=== PATIENT | female | born 1930 | race Caucasian/White ===

== ENCOUNTER 2017-10-23 08:35 | Inpatient (IN) ==
[2017-10-23] MEDS ORDERED: FUROSEMIDE 100 MG/10 ML VIAL IV STA (09:30)
[2017-10-23] MEDS ORDERED: FUROSEMIDE 40 MG/4 ML VIAL ONE (09:43)
[2017-10-23 10:04] LABS: Basophils % 0.2 % (0.0-0.8); Eosinophils % 0.1 % (0.00-10.9); Hematocrit 37.3 VOL% (35.7-47.0); Hemoglobin 12.2 GM/DL (12.0-16.0); Immature Granulocytes % 0.6 %; Immature Granulocytes Absolute 0.05 #; Lymphocytes # 0.5 10*3/uL (1.4-4.0); Lymphocytes % 6.1 % (21.3-54.2); Mean Corpuscular HGB Conc 32.7 GM/DL (32-36); Mean Corpuscular Hemoglobin 31 PG (27-34); Mean Corpuscular Volume 94.4 FL (87-102); Monocytes # 0.9 10*3/uL (0.11-0.8); Monocytes % 10.4 % (1.7-12.7); NRBC # 0.02 10*3/uL; Neutrophils # 6.7 10*3/uL (1.4-7.4); Neutrophils % 82.6 % (38.7-73.9); Platelet Count 190 T/CUMM (130-400); Red Blood Count 3.95 MC/CUMM (3.8-5.5); Red Cell Distribution Width 13.5 % (9.3-17.3); White Blood Count 8.1 T/CUMM (4-12)
[2017-10-23 10:29] LABS: Albumin 2.9 G/DL (3.4-5.0); Bilirubin,Total 0.5 MG/DL (0.2-1.0); Calcium 8.4 MG/DL (8.5-10.1); Osmolality,Calculated 283.3 MOS/KG (273-304); Total Protein 6.4 G/DL (6.4-8.3)
[2017-10-23 10:30] LABS: Troponin I Only 0.265 NG/ML (0.00-0.045)
[2017-10-23 10:50] LABS: Apearance,Urine CLEAR (Clear); Bilirubin,Urine Negative (Negative); Blood, Urine Small mg/dL (Negative); Glucose,Urine (UA) Negative (Negative); Hyaline Casts,Urine 3 /LPF (0-3); Ketones,Urine Negative (Negative); Mucus,Urine Occasional /LPF (Occasional); Nitrite,Urine Negative (Negative); Protein,Urine Negative; RBC,Urine 3 /HPF (0-4); Squamous Epithelial Cell,Urine Occasional /HPF (0-10); Urine Color Straw (Yellow); Urine Specific Gravity 1.006 (1.001-1.035); Urine Urobilinogen < 2.0 EU/DL (0.2-1.0)
[2017-10-23] MEDS ORDERED: APIXABAN 5 MG TABLET PO STA (11:12)
[2017-10-23] MEDS ORDERED: BISACODYL 5 MG TABLET PO PRN (11:15)
[2017-10-23] MEDS ORDERED: ONDANSETRON 4 MG/2 ML VIAL IV PRN (11:15)
[2017-10-23] MEDS ORDERED: METOPROLOL TARTRATE 25 MG TABLET ONE (14:23)
[2017-10-23] MEDS ORDERED: LISINOPRIL 10 MG TABLET ONE (14:28)
[2017-10-23] MEDS: LISINOPRIL 20 MG TABLET PO SCH (14:30)
[2017-10-23] MEDS: METOPROLOL TARTRATE 25 MG TABLET PO SCH ×3 (14:30→21:06)
[2017-10-23] MEDS ORDERED: FUROSEMIDE 20 MG/2 ML VIAL IV ONE (15:00)
[2017-10-23] MEDS ORDERED: FUROSEMIDE 20 MG/2 ML VIAL ONE (15:40)
[2017-10-23] MEDS ORDERED: ENOXAPARIN 40 MG/0.4 ML SYRINGE SUBCUT SCH (21:00)
[2017-10-23] MEDS: POTASSIUM CHLORIDE 20 MEQ/15 ML UDCUP PO SCH (21:06)
[2017-10-23] MEDS: APIXABAN 5 MG TABLET PO SCH (21:06)
[2017-10-24] MEDS: traZODone 50 MG TABLET PO PRN (01:34)
[2017-10-24 06:07] LABS: Basophils % 0.3 % (0.0-0.8); Eosinophils # 0.1 10*3/uL (0.0-0.87); Eosinophils % 1.1 % (0.00-10.9); Hematocrit 34.8 VOL% (35.7-47.0); Hemoglobin 11.5 GM/DL (12.0-16.0); Immature Granulocytes % 0.3 %; Immature Granulocytes Absolute 0.02 #; Lymphocytes % 14.5 % (21.3-54.2); Mean Corpuscular Hemoglobin 31 PG (27-34); Mean Corpuscular Volume 94.3 FL (87-102); Mean Platelet Volume 11.6 FL (9.6-12.0); Monocytes # 0.9 10*3/uL (0.11-0.8); Monocytes % 13.1 % (1.7-12.7); Neutrophils % 70.7 % (38.7-73.9); Platelet Count 193 T/CUMM (130-400); Red Blood Count 3.69 MC/CUMM (3.8-5.5); Red Cell Distribution Width 13.7 % (9.3-17.3)
[2017-10-24 06:52] LABS: Calcium 8.7 MG/DL (8.5-10.1)
[2017-10-24] MEDS: METOPROLOL TARTRATE 25 MG TABLET PO SCH ×4 (10:15→20:47)
[2017-10-24] MEDS: ATORVASTATIN 40 MG TABLET PO SCH (10:15)
[2017-10-24] MEDS: LISINOPRIL 20 MG TABLET PO SCH (10:15)
[2017-10-24] MEDS: POTASSIUM CHLORIDE 20 MEQ/15 ML UDCUP PO SCH (10:15)
[2017-10-24] MEDS: APIXABAN 5 MG TABLET PO SCH ×2 (10:15→20:46)
[2017-10-24] MEDS: FUROSEMIDE 40 MG TABLET PO SCH (10:16)
[2017-10-24] MEDS: METOPROLOL TARTRATE 50 MG TABLET PO SCH ×2 (10:18→20:58)
[2017-10-25 05:54] LABS: Calcium 8.3 MG/DL (8.5-10.1); Osmolality,Calculated 289.8 MOS/KG (273-304); Potassium 3.9 MMOL/L (3.5-5.1)
[2017-10-25] MEDS: FUROSEMIDE 40 MG TABLET PO SCH (10:11)
[2017-10-25] MEDS: LISINOPRIL 20 MG TABLET PO SCH (10:11)
[2017-10-25] MEDS: METOPROLOL TARTRATE 25 MG TABLET PO SCH ×4 (10:11→21:11)
[2017-10-25] MEDS: APIXABAN 5 MG TABLET PO SCH ×2 (10:11→21:11)
[2017-10-25] MEDS: ATORVASTATIN 40 MG TABLET PO SCH (10:12)
[2017-10-25] MEDS: METOPROLOL TARTRATE 50 MG TABLET PO SCH ×2 (10:12→22:05)
[2017-10-25] MEDS: LANSOPRAZOLE ODT 30 MG TABLET PO SCH ×2 (10:14→21:10)
[2017-10-25] MEDS: traZODone 50 MG TABLET PO PRN (21:11)
[2017-10-25] MEDS: BENZONATATE 100 MG CAPSULE PO PRN (21:12)
[2017-10-26 05:10] LABS: Basophils % 0.4 % (0.0-0.8); Eosinophils # 0.1 10*3/uL (0.0-0.87); Eosinophils % 1.4 % (0.00-10.9); Hematocrit 33.9 VOL% (35.7-47.0); Hemoglobin 11.3 GM/DL (12.0-16.0); Immature Granulocytes % 0.5 %; Immature Granulocytes Absolute 0.04 #; Lymphocytes # 0.9 10*3/uL (1.4-4.0); Lymphocytes % 11.8 % (21.3-54.2); Mean Corpuscular HGB Conc 33.3 GM/DL (32-36); Mean Corpuscular Hemoglobin 31 PG (27-34); Mean Corpuscular Volume 94.2 FL (87-102); Monocytes # 0.9 10*3/uL (0.11-0.8); Monocytes % 11.4 % (1.7-12.7); Neutrophils # 5.7 10*3/uL (1.4-7.4); Neutrophils % 74.5 % (38.7-73.9); Platelet Count 192 T/CUMM (130-400); Red Cell Distribution Width 13.3 % (9.3-17.3); White Blood Count 7.6 T/CUMM (4-12)
[2017-10-26 05:42] LABS: Calcium 8.1 MG/DL (8.5-10.1); Osmolality,Calculated 285.1 MOS/KG (273-304); Potassium 3.5 MMOL/L (3.5-5.1)
[2017-10-26] MEDS: ATORVASTATIN 40 MG TABLET PO SCH (08:43)
[2017-10-26] MEDS: LISINOPRIL 20 MG TABLET PO SCH (08:43)
[2017-10-26] MEDS: APIXABAN 5 MG TABLET PO SCH ×2 (08:46→21:32)
[2017-10-26] MEDS: METOPROLOL TARTRATE 25 MG TABLET PO SCH (08:46)
[2017-10-26] MEDS: LANSOPRAZOLE ODT 30 MG TABLET PO SCH ×2 (08:50→21:32)
[2017-10-26] MEDS: FUROSEMIDE 40 MG TABLET PO SCH (08:51)
[2017-10-26] MEDS: METOPROLOL TARTRATE 50 MG TABLET PO SCH (10:48)
[2017-10-26] MEDS ORDERED: NITROGLYCERIN SL 0.4 MG TABLET SL PRN (13:07)
[2017-10-26] MEDS: METOPROLOL TARTRATE 100 MG TABLET PO SCH (21:32)
[2017-10-27 04:43] LABS: Basophils % 0.4 % (0.0-0.8); Eosinophils # 0.2 10*3/uL (0.0-0.87); Eosinophils % 2.2 % (0.00-10.9); Hematocrit 34.2 VOL% (35.7-47.0); Hemoglobin 11.6 GM/DL (12.0-16.0); Immature Granulocytes % 0.4 %; Immature Granulocytes Absolute 0.03 #; Lymphocytes # 1.2 10*3/uL (1.4-4.0); Lymphocytes % 15.2 % (21.3-54.2); Mean Corpuscular HGB Conc 33.9 GM/DL (32-36); Mean Corpuscular Hemoglobin 31 PG (27-34); Mean Corpuscular Volume 92.4 FL (87-102); Mean Platelet Volume 11.3 FL (9.6-12.0); Monocytes # 0.9 10*3/uL (0.11-0.8); Monocytes % 11.3 % (1.7-12.7); Neutrophils # 5.5 10*3/uL (1.4-7.4); Neutrophils % 70.5 % (38.7-73.9); Platelet Count 210 T/CUMM (130-400); Red Cell Distribution Width 13.2 % (9.3-17.3); White Blood Count 7.8 T/CUMM (4-12)
[2017-10-27 05:22] LABS: Calcium 8.1 MG/DL (8.5-10.1); Osmolality,Calculated 285.1 MOS/KG (273-304); Potassium 3.6 MMOL/L (3.5-5.1)
[2017-10-27] MEDS ORDERED: MAGNESIUM SULF RIDER 2 GM in PREMIX 1 EACH IV ONE (07:47)
[2017-10-27] MEDS ORDERED: ASPIRIN EC 81 MG TABLET PO SCH (09:00)
[2017-10-27] MEDS ORDERED: LOSARTAN 50 MG TABLET PO SCH (09:00)
[2017-10-27] MEDS: METOPROLOL TARTRATE 100 MG TABLET PO SCH (09:25)
[2017-10-27] MEDS: LANSOPRAZOLE ODT 30 MG TABLET PO SCH (09:25)
[2017-10-27] MEDS: ATORVASTATIN 40 MG TABLET PO SCH (09:26)
[2017-10-27] MEDS: APIXABAN 5 MG TABLET PO SCH (09:26)
[2017-10-27] MEDS: FUROSEMIDE 40 MG TABLET PO SCH (09:26)
[2017-10-27] MEDS ORDERED: ACETAMINOPHEN 325 MG TABLET PO ONE (12:12)
[2017-10-27] MEDS ORDERED: ACETAMINOPHEN 325 MG TABLET ONE (12:14)
[2017-10-27] MEDS: BENZONATATE 100 MG CAPSULE PO PRN (12:17)
[2017-10-27 12:30] VITALS: BP 151/69
[2017-10-30] MEDS ORDERED: APIXABAN 2.5 MG TABLET PO SCH (09:00)
[2017-10-30] MEDS ORDERED: APIXABAN 5 MG TABLET PO SCH (09:00)
== END 2017-10-27 16:00 | disposition home health service (06) | DRG 291 ==
LOC: N.ED 08:35 → SUATTDRO 11:15 → N.EDINP 11:15 → N.TELES 16:55
PROVIDERS: ADMIT Internal Medicine Cardiovascular Disease; ATTEND Internal Medicine